=== PATIENT | female | born 1955 | race Caucasian/White ===

== ENCOUNTER → 2018-09-05 | Outpatient (CLI) | payer BC ==
--- NOTE | 2018-09-06 17:26 | 24HR ---
[facility] [place] [place] [address] 24 HR ELECTROCARDIOGRAM REPORT Name: SAUD FREDERICK Room #: REG [facility]#: [id number] ������������� Admission: 09/05/18 ������������� Attend Phys: Kody Collazo MD Discharge: ��� ������������� ��� Date of : 55 Date of Service: 09/05/18 1145 �� Report #: [id number] �������� ��������������������������������������������[id number] THIS REPORT FOR: //name// [facility] Test Date: 2018-09-05 Test Time: 11:45:00 Pat Name: SAUD FREDERICK Department: Room: Gender: [employer] Supervisor: : 1955 Requested By: Kody Collazo Order Number: [id number] Reading MD: Tex Carreno Interpretive Statements 1. The study duration was 24 hours and the technical quality was good. Predominant rhythm sinus rhythm at an average heart rate is 74 bpm, range 48-130 bpm. Longest RR interval 1.4 seconds. 2. Rare isolated premature supraventricular complexes. No episodes of atrial fibrillation or atrial flutter. No heart block. No pauses. No episodes of paroxysmal supraventricular tachycardia. 3. Occasional isolated premature ventricular complexes. Occasional episodes of ventricular bigeminy. No episodes of ventricular tachycardia. PVC burden 2.4% 4. Symptoms of "fluttering heart" corresponded to isolated premature ventricular complexes. Electronically Signed On 09-06-2018 17:26:22 SENIOR COPYWRITER by Tex Carreno [email or web address] ��������������������������������������������� <ELECTRONICALLY SIGNED> ���������������������������������������� By: Tex Carreno MD, [facility] ��������������������������������������������� 09/06/18 1726 1145 1145 Tex Carreno MD, [facility] /EPI
== END ==
LOC: CV 11:02
DX: I49.8 Other specified cardiac arrhythmias (principal); I10 Essential (primary) hypertension; E78.5 Hyperlipidemia, unspecified; Z82.49 Family history of ischemic heart disease and other diseases of the circulatory system; Z68.35 Body mass index [BMI] 35.0-35.9, adult